=== PATIENT | female | born 1975 ===

== ENCOUNTER 2018-05-12 08:27 | Outpatient (CLI) | payer OTHER ==
[~2018-05-12] VITALS: Ht 165.1 cm; Wt 86.2 kg
== END 2018-05-12 08:45 | disposition home or self-care (01) ==
LOC: OFIC 805 08:27
DX: H81.13 Benign paroxysmal vertigo, bilateral (principal); H90.3 Sensorineural hearing loss, bilateral; H61.23 Impacted cerumen, bilateral